=== PATIENT | male | born 1985 | race Caucasian/White ===

== ENCOUNTER 2019-08-28 19:33 | Emergency (ER) | payer SELFPAY ==
[~2019-08-28] VITALS: Ht 188 cm; Wt 93.2 kg
--- NOTE | 2019-08-28 20:22 | PHYS DOC ---
General Adult EDM: Chief Complaint: SUBSTANCE ABUSE HPI: HPI: Patient is a 34 year old male with no past medical history presents to the emergency department requesting resources for stopping meth abuse. Patient states he smoked meth for greater than 1 year. Patient denies any headache chest pain shortness of breath suicidal or homicidal ideation. Patient states he would just like resources. Review of Systems: Review of Systems: Constitutional: Denies fever or chills. [] Eyes: Denies change in visual acuity. [] HENT: Denies nasal congestion or sore throat. [] Respiratory: Denies cough or shortness of breath. [] Cardiovascular: Denies chest pain or edema. [] GI: Denies abdominal pain, nausea, vomiting, bloody stools or diarrhea. [] : Denies dysuria. [] Musculoskeletal: Denies back pain or joint pain. [] Integument: Denies rash. [] Neurologic: Denies headache, focal weakness or sensory changes. [] Endocrine: Denies polyuria or polydipsia. [] Lymphatic: Denies swollen glands. [] Psychiatric: Denies depression or anxiety. [] Heart Score: Risk Factors: Risk Factors: DM, Current or recent (<one month) smoker, HTN, HLP, family history of CAD, obesity. Risk Scores: Score 0 - 3: 2.5% MACE over next 6 weeks - Discharge Home Score 4 - 6: 20.3% MACE over next 6 weeks - Admit for Clinical Observation Score 7 - 10: 72.7% MACE over next 6 weeks - Early Invasive Strategies Physical Exam: PE: Constitutional: Well developed, well nourished, no acute distress, non-toxic appearance. [] HENT: Normocephalic, atraumatic, bilateral external ears normal, oropharynx moist, no oral exudates, nose normal. [] Eyes: PERRLA, EOMI, conjunctiva normal, no discharge. [] Neck: Normal range of motion, no tenderness, supple, no stridor. [] Cardiovascular:Heart rate regular rhythm, no murmur [] Lungs & Thorax: Bilateral breath sounds clear to auscultation [] Abdomen: Bowel sounds normal, soft, no tenderness, no masses, no pulsatile masses. [] Skin: Warm, dry, no erythema, no rash. [] Back: No tenderness, no CVA tenderness. [] Extremities: No tenderness, no cyanosis, no clubbing, ROM intact, no edema. [] Neurologic: Alert and oriented X 3, normal motor function, normal sensory function, no focal deficits noted. [] Psychologic: Affect normal, judgement normal, mood normal. [] EKG: EKG: [] Radiology/Procedures: Radiology/Procedures: [] Course & Med Decision Making: Course & Med Decision Making Pertinent Labs and Imaging studies reviewed. (See chart for details) []Evaluated by PAT. Patient provided with resources and discharged home. Dragon Disclaimer: Dragon Disclaimer: This electronic medical record was generated, in whole or in part, using a voice recognition dictation system. Departure Departure Impression: Primary Impression: Substance abuse Disposition: 01 HOME, SELF-CARE Condition: STABLE Referrals: DELIA CLAIRE,LORENZO Waldron MD (PCP) Patient Instructions: Substance Abuse-Brief Justicifation of Admission Dx: Justifications for Admission: Justification of Admission Dx: N/A GUILLERMO SWANSON DO Aug 28, 2019 20:22
[2019-08-28 21:22] VITALS: BP 145/94
== END 2019-08-28 21:30 | disposition home or self-care (01) ==
LOC: ER 19:33
DX: F15.10 Other stimulant abuse, uncomplicated (principal)
CPT/HCPCS: 99284

== ENCOUNTER 2019-11-15 22:29 | Emergency (ER) | payer SELFPAY ==
[~2019-11-15] VITALS: Ht 188 cm; Wt 90.9 kg
[2019-11-15] MEDS ORDERED: POLY10DR EACHEYE (22:54)
--- NOTE | 2019-11-15 22:54 | PHYS DOC ---
Past Medical History Past Medical History: Asthma Past Surgical History: Other Additional Past Surgical Histo: BROKEN NOSE SX. Smoking Status: Current Every Day Smoker Alcohol Use: Occasionally General Adult EDM: Chief Complaint: EYE PROBLEMS HPI: HPI: Patient is a 34 year old male presents for evaluation of left eye swelling and drainage x 3 days. Patient states eye lids matted closed in the AM. Does not wear contact lens, Review of Systems: Review of Systems: Constitutional: Denies fever or chills. [] Eyes: positive eye drainage and swelling HENT: Denies nasal congestion or sore throat. [] Respiratory: Denies cough or shortness of breath. [] Cardiovascular: Denies chest pain or edema. [] GI: Denies abdominal pain, nausea, vomiting, bloody stools or diarrhea. [] : Denies dysuria. [] Musculoskeletal: Denies back pain or joint pain. [] Integument: Denies rash. [] Neurologic: Denies headache, focal weakness or sensory changes. [] Endocrine: Denies polyuria or polydipsia. [] Lymphatic: Denies swollen glands. [] Psychiatric: Denies depression or anxiety. [] Heart Score: Risk Factors: Risk Factors: DM, Current or recent (<one month) smoker, HTN, HLP, family h istory of CAD, obesity. Risk Scores: Score 0 - 3: 2.5% MACE over next 6 weeks - Discharge Home Score 4 - 6: 20.3% MACE over next 6 weeks - Admit for Clinical Observation Score 7 - 10: 72.7% MACE over next 6 weeks - Early Invasive Strategies Allergies: Allergies: Allergies Coded Allergies Type Severity Reaction Last Updated Verified No Known Drug Allergies 08/28/19 No Physical Exam: PE: Constitutional: Well developed, well nourished, no acute distress, non-toxic appearance. [] HENT: Normocephalic, atraumatic, bilateral external ears normal, oropharynx moist, no oral exudates, nose normal. [] Eyes: PERRLA, EOMI, LEFT EYE injected conjunctiva, discharge and chemosis left eye [] Neck: Normal range of motion, no tenderness, supple, no stridor. [] Cardiovascular:Heart rate regular rhythm, no murmur [] Lungs & Thorax: Bilateral breath sounds clear to auscultation [] Abdomen: Bowel sounds normal, soft, no tenderness, no masses, no pulsatile masses. [] Skin: Warm, dry, no erythema, no rash. [] Back: No tenderness, no CVA tenderness. [] Extremities: No tenderness, no cyanosis, no clubbing, ROM intact, no edema. [] Neurologic: Alert and oriented X 3, normal motor function, normal sensory function, no focal deficits noted. [] Psychologic: Affect normal, judgement normal, mood normal. [] Current Patient Data: Vital Signs: Vital Signs Date Time Temp Pulse Resp B/P (MAP) Pulse Ox O2 Delivery O2 Flow Rate FiO2 11/15/19 22:37 98.1 100 18 145/94 (111) 100 Room Air 98.1 EKG: EKG: [] Radiology/Procedures: Radiology/Procedures: [] Course & Med Decision Making: Course & Med Decision Making Pertinent Labs and Imaging studies reviewed. (See chart for details) [] Dragon Disclaimer: Dragon Disclaimer: This electronic medical record was generated, in whole or in part, using a voice recognition dictation system. Departure Departure Impression: Primary Impression: Acute conjunctivitis, left eye Disposition: 01 HOME, SELF-CARE Referrals: NO PCP (PCP) Patient Instructions: Bacterial Conjunctivitis Scripts Polymyxin B Sulf/Trimethoprim (POLYTRIM EYE DROPS) 10 Ml Drops 1 DROP EACHEYE Q6HRS for 10 Days, #10 ML Prov: GUILLERMO SWANSON DO 11/15/19 Justicifation of Admission Dx: Justifications for Admission: Justification of Admission Dx: N/A GUILLERMO SWANSON DO Nov 15, 2019 22:54
[2019-11-15 23:05] VITALS: BP 171/95
== END 2019-11-15 23:03 | disposition home or self-care (01) ==
LOC: ER 22:29
DX: H10.32 Unspecified acute conjunctivitis, left eye (principal); R60.0 Localized edema; J45.909 Unspecified asthma, uncomplicated; F17.200 Nicotine dependence, unspecified, uncomplicated; Z98.890 Other specified postprocedural states
CPT/HCPCS: 99283

== ENCOUNTER 2020-09-11 07:09 | Emergency (ER) | payer SELFPAY ==
[~2020-09-11 07:09] MED LIST: POLY10DR EACHEYE
== END 2020-09-11 07:39 | disposition left against medical advice (07) ==
LOC: ER 07:09
DX: Z20.2 Contact with and (suspected) exposure to infections with a predominantly sexual mode of transmission (principal); Z53.21 Procedure and treatment not carried out due to patient leaving prior to being seen by health care provider

== ENCOUNTER 2021-02-03 20:18 | Emergency (ER) | payer SELFPAY ==
[~2021-02-03] VITALS: Ht 185.4 cm; Wt 93.1 kg
[2021-02-03 21:26] VITALS: BP 186/100
--- NOTE | 2021-02-03 21:32 | PHYS DOC ---
General Adult EDM: Chief Complaint: PSYCH EVALUATION HPI: HPI: Patient is a 35 year old [f__sex] who presents with [] Review of Systems: Review of Systems: Constitutional: Denies fever or chills. [] Eyes: Denies change in visual acuity. [] HENT: Denies nasal congestion or sore throat. [] Respiratory: Denies cough or shortness of breath. [] Cardiovascular: Denies chest pain or edema. [] GI: Denies abdominal pain, nausea, vomiting, bloody stools or diarrhea. [] : Denies dysuria. [] Musculoskeletal: Denies back pain or joint pain. [] Integument: Denies rash. [] Neurologic: Denies headache, focal weakness or sensory changes. [] Endocrine: Denies polyuria or polydipsia. [] Lymphatic: Denies swollen glands. [] Psychiatric: Denies depression or anxiety. [] Heart Score: Risk Factors: Risk Factors: DM, Current or recent (<one month) smoker, HTN, HLP, family history of CAD, obesity. Risk Scores: Score 0 - 3: 2.5% MACE over next 6 weeks - Discharge Home Score 4 - 6: 20.3% MACE over next 6 weeks - Admit for Clinical Observation Score 7 - 10: 72.7% MACE over next 6 weeks - Early Invasive Strategies Allergies: Allergies: Allergies Coded Allergies Type Severity Reaction Last Updated Verified No Known Drug Allergies 02/03/21 No Physical Exam: PE: Constitutional: Well developed, well nourished, no acute distress, non-toxic appearance. [] HENT: Normocephalic, atraumatic, bilateral external ears normal, oropharynx moist, no oral exudates, nose normal. [] Eyes: PERRLA, EOMI, conjunctiva normal, no discharge. [] Neck: Normal range of motion, no tenderness, supple, no stridor. [] Cardiovascular:Heart rate regular rhythm, no murmur [] Lungs & Thorax: Bilateral breath sounds clear to auscultation [] Abdomen: Bowel sounds normal, soft, no tenderness, no masses, no pulsatile masses. [] Skin: Warm, dry, no erythema, no rash. [] Back: No tenderness, no CVA tenderness. [] Extremities: No tenderness, no cyanosis, no clubbing, ROM intact, no edema. [] Neurologic: Alert and oriented X 3, normal motor function, normal sensory function, no focal deficits noted. [] Psychologic: Affect normal, judgement normal, mood normal. [] EKG: EKG: [] Radiology/Procedures: Radiology/Procedures: [] Course & Med Decision Making: Course & Med Decision Making Pertinent Labs and Imaging studies reviewed. (See chart for details) [] Dragon Disclaimer: Dragon Disclaimer: This electronic medical record was generated, in whole or in part, using a voice recognition dictation system. Departure Departure Impression: Primary Impression: Drug abuse Disposition: HOME / SELF CARE / HOMELESS Condition: STABLE Patient Instructions: Alcohol and Drug Addiction, Finding Treatment, Drug Abuse, FAQs LIZETH GARCIA DO Feb 03, 2021 21:32
== END 2021-02-03 21:36 | disposition home or self-care (01) ==
LOC: ER 20:18 → MERGE 20:18 → EDBD 20:18 → ER 21:36
DX: F19.10 Other psychoactive substance abuse, uncomplicated (principal)
CPT/HCPCS: 99281